=== PATIENT | female | born 1960 | race Caucasian/White ===

== ENCOUNTER 2024-02-27 06:30 | Day surgery (SDC) | payer BC ==
[2024-02-21 12:36] VITALS: BMI 22.0
[2024-02-27] MEDS: TROPICAMIDE 1% OPHTH SOLN 15 ML BOTTLE ONE (06:50)
[2024-02-27] MEDS: CYCLOPENTOLATE 2% OPHTH SOLN 2 ML BOTTLE ONE (06:50)
[2024-02-27] MEDS: CIPROFLOXACIN 0.3% EYE DROPS 5 ML BOTTLE ONE (06:50)
[2024-02-27] MEDS: PHENYLEPHRINE 2.5% OPTHALMIC DROP 2ML BOTTLE ONE (06:50)
[2024-02-27 06:59] VITALS: RESP 18
[2024-02-27] MEDS ORDERED: EPINEPHrine/PF 1 MG/1 ML (1:1,000) AMPULE ONE (07:11)
[2024-02-27] MEDS ORDERED: LIDOCAINE 1% P/F 10 MG/ML VIAL ONE (07:11)
[2024-02-27] MEDS ORDERED: TETRACAINE 0.5% OPHTH SOLN 2 ML BOTTLE ONE (07:12)
[2024-02-27] MEDS ORDERED: BSS (NA/CA/MG/K) BALANCED SALT SOLUTION OPHTH SOLN 15 ML BOTTLE ONE (07:12)
[2024-02-27] MEDS ORDERED: CARBACHOL 0.01% INTRA-OCULAR 1.5 ML VIAL ONE (07:13)
[2024-02-27] MEDS ORDERED: NEO/POLYMYX B SULF/DEXAMETH OPHTHALMIC 5ML BOTTLE ONE (07:13)
[2024-02-27] MEDS ORDERED: MIDAZOLAM HCL 2 MG/2 ML SINGLE DOSE VIAL ONE ×2 (08:06→08:18)
[2024-02-27 08:54] VITALS: TEMP 97.9
[2024-02-27] MEDS: ACETAMINOPHEN 500 MG TABLET (FP) PO ONE (09:10)
[2024-02-27 09:11] VITALS: BP 131/88; PULSE 82
== END 2024-02-27 10:10 | disposition home or self-care (01) ==
LOC: FASU 06:30
PROVIDERS: ATTEND Ophthalmology
PROC: 08RJ3JZ Replacement of Right Lens with Synthetic Substitute, Percutaneous Approach (ICD-10-PCS; principal; 2024-02-27 08:20)
DX: H26.8 Other specified cataract (principal)
CPT/HCPCS: 66984; V2632